=== PATIENT | male | born 1975 | race Caucasian/White ===

== ENCOUNTER 2016-05-18 12:07 | Emergency (ER) | payer SELFPAY ==
[2016-05-18] MEDS ORDERED: Indomethacin 25 mg Capsule ONE (12:44)
--- NOTE | 2016-05-18 13:08 | ERRECORD ---
[facility] EMERGENCY RECORD HPI FOOT (12:43 JLOY) CHIEF COMPLAINT: Patient presents for evaluation of Pt with 4 days of severe right 1st MTP joint pain and swelling. Local warmth. Exquisite tenderness to touch, walking, or trying to put on his boot. Similar to previous gout eppisodes but more severe. No injury. HISTORIAN: History provided by patient. MECHANISM OF INJURY: Unknown mechanism. LOCATION: Symptoms are localized, most severe in the first toe. QUALITY: Pain is dull in nature. TIME COURSE: Symptoms are worsening, are constant, woke with the pain. ASSOCIATED WITH: No associated alcohol use, No associated ankle pain, No associated fever, Associated with inability to ambulate, Associated with inability to bear weight, No associated open wounds, Associated with pain on walking, Associated with warmth. EXACERBATED BY: Patient's condition exacerbated by walking, Patient's condition exacerbated by touch, movement. RELIEVED BY: Patient's condition relieved by nothing. ROS (12:45 JLOY) CONSTITUTIONAL: Historian denies chills, denies fever. GI: Historian denies nausea, denies vomiting. SKIN: mild redness at the site. NEUROLOGIC: Historian denies paralysis, denies paresthesias, denies sensory changes. PAST MEDICAL HISTORY MEDICAL HISTORY: Flu vaccine not up to date, Tetanus not up to date, Pneumococcal vaccine not up to date, Past medical history includes musculoskeletal disorder, gout, Past medical history includes neurological disease, Epilepsy. (12:22 [facility]) MALE SURGICAL HISTORY: Surgical history of orthopedic surgery, LEFT KNEE SURGERY. (12:23 [facility]) PSYCHIATRIC HISTORY: No previous psychiatric history. (12:23 [facility]) SOCIAL HISTORY: Patient denies alcohol use, Patient denies drug use, Patient has no smoking history. (12:23 [facility]) NOTES: Nursing records reviewed, Agree with nursing records. (12:47 JLOY) KNOWN ALLERGIES NKDA CURRENT MEDICATIONS (12:17 [facility]) Depakote: TABLET, DELAYED RELEASE (ENTERIC COATED) : Strength - 500 mg : ORAL Patient Dose: 1000 mg Oral 2 times a day. &a-1R&a+25V*p+0X*f9601W*c202B*c15G*c2P*p-0X&a-25V&a+1R Name: Juan Chavez : 1975 10 MedRec: [id number] AcctNum: [id number] Prepared: WedMay 18, 2016 12:58 by Interface Page [address] [facility] EMERGENCY RECORD VITAL SIGNS (12:09 [facility]) VITAL SIGNS: BP: 140/79 (Sitting), Pulse: 72 (Regular), Resp: 18 (Non-Labored), Temp: 97.6 (Oral), Pain: 10 (Constant), O2 sat: 95 on Room Air, Time: 05/18/2016 12:09. PHYSICAL EXAM (12:45 [facility]) CONSTITUTIONAL: Vital Signs Reviewed, Patient appears non toxic, Patient alert and oriented to person, place and time. LOWER EXTREMITY: Lower extremity exam included findings of inspection normal, Range of motion normal, Motor strength normal, Sensation intact, Pedal pulse normal, distal motor intact, distal sensory intact, Mod swelling of right 1st MTP joint. TTP. Warm with mild redness of the skin. No drainage. Toe exam normal distally. NEURO: [place] coma scale 15, Neuro exam findings include patient oriented to person, place and time, Speech normal. SKIN: Skin exam included findings of skin warm, dry, and normal in color. PSYCHIATRIC: Normal affect. MEDICATION ADMINISTRATION SUMMARY Drug Name: indomethacin oral, Dose Ordered: 50 mg, Route: Oral, Status: Given, Time: 12:43 05/18/2016, Detailed record available in Medication Service section. PROBLEM LIST No recorded problems DIAGNOSIS (12:48 [facility]) FINAL: PRIMARY: GOUT UNSPECIFIED. PRESCRIPTION (12:43 [facility]) indomethacin oral: CAPSULE : 50 mg : ORAL : Quantity: 50 Unit: mg Route: ORAL Schedule: every 8 hours PRN Dispense: 20 May substitute. Refills: No Refills . NOTES: Take 3 times a day for the first 2-3 days until the pain improves and then take 2 times a day until the pain is gone. No Refills. DISPOSITION PATIENT: Disposition Type: Discharge, Disposition: *Discharge Home. (12:48 [facility]) Patient left the department. (12:52 [facility]) Velarde: [facility]=MD Femi, Igor [facility]=ELENA Henao, Ely &joaquin-1R&a+25V*p+0X*s1437G*c202B*c15G*c2P*p-0X&a-25V&a+1R Name: Juan Chavez : 1975 M40 MedRec: [id number] AcctNum: [id number] Prepared: WedMay 18, 2016 12:58 by Interface Page 2 of 2 pMD MTDD
--- NOTE | 2016-05-18 13:15 | PICIS ---
[facility] EMERGENCY RECORD TRIAGE (12:16 [facility]) TRIAGE NOTES: RT FOOT/GREAT TOE PAIN X 4 DAYS, HX GOUT NO INJURY. (12:16 [facility]) PATIENT: NAME: Juan Chavez, AGE: 40, GENDER: male, : Wed1975, TIME OF GREET: WedMay 18, 2016 12:08, PREFERRED LANGUAGE: Uzbek, ECODE BILLING MAP: [facility], SSN: [id number], Zip Code: [address], KG WEIGHT: [phone], PHONE: , , , PERSON ID: [id number], PCP: DR MAXX YOUNG. (12:16 [facility]) COMPLAINT: RIGHT FOOT PAIN. (12:16 [facility]) ADMISSION: URGENCY: 4 Non Urgent, ADMISSION SOURCE: Home, TRANSPORT: CAR, BED: ER -02. (12:16 [facility]) ASSESSMENT: Assessment: PAIN SWELLING, REDNESS TO RIGHT GREAT TOE X 4 DAYS, PAIN EXTENDS UP RT FOOT TO ANKLE, HX GOUT, NO INJURY, Symptoms began 4 DAYS AGO. (12:19 [facility]) PAIN: Pain is constant, Aggravating factors:, Pain exacerbated by movement, No efforts tried to relieve symptoms. (12:19 [facility]) IMMUNIZATIONS: Flu vaccine not up to date, Tetanus not up to date, Pneumococcal vaccine not up to date. (12:19 [facility]) SIRS SCORING: Heart Rate 55-109 (0), Temp range 96.8-101.1 (0), respiratory rate 12-24 (0), Mental Status altered: no (0), Infection or Suspected Infection: No. (12:19 [facility]) TRIAGE SCREENING: Patient denies suicidal ideation, Patient denies presence of domestic violence. (12:19 [facility]) PROVIDERS: TRIAGE NURSE: Ely Henao RN. (12:16 [facility]) VITAL SIGNS: BP 140/79, (Sitting), Pulse 72, (Regular), Resp 18, (Non-Labored), Temp 97.6, (Oral), Pain 10, (Constant), O2 Sat 95, on Room Air, Time 05/18/2016 12:09. (12:09 [facility]) KNOWN ALLERGIES NKDA CURRENT MEDICATIONS (12:17 [facility]) Depakote: TABLET, DELAYED RELEASE (ENTERIC COATED) : Strength - 500 mg : ORAL Patient Dose: 1000 mg Oral 2 times a day. VITAL SIGNS (12:09 [facility]) VITAL SIGNS: BP: 140/79 (Sitting), Pulse: 72 (Regular), Resp: 18 (Non-Labored), Temp: 97.6 (Oral), Pain: 10 (Constant), O2 sat: 95 on Room Air, Time: 05/18/2016 12:09. NURSING ASSESSMENT: EXTREMITY LOWER (12:16 [facility]) CONSTITUTIONAL: Patient arrives ambulatory, Gait steady, History obtained from patient, Patient appears, obese, uncomfortable, Patient cooperative, Patient alert, Oriented to person, place and time, Skin warm, Skin dry, Skin normal in color, &a-1R&a+25V*p+0X*b0254Y*c202B*c15G*c2P*p-0X&a-25V&a+1R Name: Juan Chavez : 1975 M40 MedRec: [id number] AcctNum: [id number] Prepared: WedMay 18, 2016 13:03 by Interface Page 1 of 5 pMD [facility] EMERGENCY RECORD Mucous membranes pink, Mucous membranes moist, Patient is well-groomed, Patient complains of SWELLING REDNESS PAIN TO RIGHT GREAT TOE. PAIN: aching pain, to the first metatarsal on the right foot, Pain radiates, PAIN RADIATES DOWN RT FOOT TO ANKLE, Onset of pain 4 DAYS AGO, constant, on a scale 0-10 patient rates pain as 10, Pain exacerbated by, ambulation, bending, exercise, palpation, pressure, remaining still, rest, walking, weight bearing, Nothing has been tried to alleviate the pain. LEFT LOWER EXTREMITY: Left lower extremity assessment findings include capillary refill less than 2 seconds, Skin color normal, Skin temperature warm, Distal sensation intact, Muscle tone normal, muscle strength 5, no edema present, posterior tibia pulse is +3, Inspection findings include no signs of infection, Inspection findings include no signs of trauma, Inspection findings include no swelling. RIGHT LOWER EXTREMITY: Right lower extremity assessment findings include capillary refill less than 2 seconds, Skin color normal, Skin temperature warm, Distal sensation intact, Muscle tone normal, muscle strength 3, +2 edema present, posterior tibia pulse is +3, dorsalis pedis pulse is +3, Inspection findings include redness, to RT GREAT TOE, Inspection findings include no signs of infection, Inspection findings include no signs of trauma, Inspection findings include swelling, to RT GREAT TOE, Notes: HX OF GOUT ONE YEAR AGO, USED TO TAKE ALLOPURINOL, STATES MED DIDN'T WORK. SAFETY: Side rails up, Cart/Stretcher in lowest position, Family at bedside, Call light within reach, Hospital ID band on. NURSING PROCEDURE: DISCHARGE NOTE (12:51 [facility]) DISCHARGE: Patient discharged to home, ambulating without assistance, family driving, accompanied by other family member, Summary of Care printed/ provided, Patient requested and was provided an electronic copy of Discharge Instructions, Transition record given to patient, Discharge instructions given to patient, Simple or moderate discharge teaching performed, by Jose Maria HENAO RN, Prescriptions given and instructions on side effects given, Name of prescription(s) given: INDOCIN, Medication reconciliation form given, and reviewed with patient, Above person(s) verbalized understanding of discharge instructions and follow-up care, Notes: DC HOME STABLE, AMBULATES SLOW STEADY GAIT. BELONGINGS: Belongings and valuables with patient upon arrival to the Emergency Department include:. MEDICATION ADMINISTRATION SUMMARY Drug Name: indomethacin oral, Dose Ordered: 50 mg, Route: Oral, Status: Given, Time: 12:43 05/18/2016, Detailed record available in Medication Service section. &a-1R&a+25V*p+0X*v3181V*c202B*c15G*c2P*p-0X&a-25V&a+1R Name: Juan Chavez : 1975 M40 MedRec: [id number] AcctNum: [id number] Prepared: WedMay 18, 2016 13:03 by Interface Page 2 of 5 pMD [facility] EMERGENCY RECORD MEDICATION SERVICE indomethacin oral: Order: indomethacin oral (indomethacin) - Dose: 50 mg : Oral Ordered by: Igor Kahn MD Entered by: Igor Kahn MD WedMay 18, 2016 12:41 Documented as given by: Ely Henao RN WedMay 18, 2016 12:43 Patient, Medication, Dose, Route and Time verified prior to administration. Amount given: 50 MG, Site: Medication administered P.O., Correct patient, time, route, dose and medication confirmed prior to administration, Patient advised of actions and side-effects prior to administration, Allergies confirmed and medications reviewed prior to administration, Administered by Jose Maria HENAO RN, Patient in position of comfort, Side rails up, Cart in lowest position, Family at bedside. : Follow Up : No signs or symptoms of allergic reaction noted. (12:51 [facility]) HPI FOOT (12:43 [facility]) CHIEF COMPLAINT: Patient presents for evaluation of Pt with 4 days of severe right 1st MTP joint pain and swelling. Local warmth. Exquisite tenderness to touch, walking, or trying to put on his boot. Similar to previous gout eppisodes but more severe. No injury. HISTORIAN: History provided by patient. MECHANISM OF INJURY: Unknown mechanism. LOCATION: Symptoms are localized, most severe in the first toe. QUALITY: Pain is dull in nature. TIME COURSE: Symptoms are worsening, are constant, woke with the pain. ASSOCIATED WITH: No associated alcohol use, No associated ankle pain, No associated fever, Associated with inability to ambulate, Associated with inability to bear weight, No associated open wounds, Associated with pain on walking, Associated with warmth. EXACERBATED BY: Patient's condition exacerbated by walking, Patient's condition exacerbated by touch, movement. RELIEVED BY: Patient's condition relieved by nothing. ROS (12:45 [facility]) CONSTITUTIONAL: Historian denies chills, denies fever. GI: Historian denies nausea, denies vomiting. SKIN: mild redness at the site. NEUROLOGIC: Historian denies paralysis, denies paresthesias, denies sensory changes. PAST MEDICAL HISTORY MEDICAL HISTORY: Flu vaccine not up to date, Tetanus not up to date, Pneumococcal vaccine not up to date, Past medical history includes musculoskeletal disorder, gout, Past medical history includes &a-1R&a+25V*p+0X*c4336L*c202B*c15G*c2P*p-0X&a-25V&a+1R Name: Juan Chavez : 1975 M40 MedRec: [id number] AcctNum: [id number] Prepared: WedMay 18, 2016 13:03 by Interface Page 3 of 5 pMD [facility] EMERGENCY RECORD neurological disease, Epilepsy. (12:22 [facility]) MALE SURGICAL HISTORY: Surgical history of orthopedic surgery, LEFT KNEE SURGERY. (12:23 [facility]) PSYCHIATRIC HISTORY: No previous psychiatric history. (12:23 [facility]) SOCIAL HISTORY: Patient denies alcohol use, Patient denies drug use, Patient has no smoking history. (12:23 [facility]) NOTES: Nursing records reviewed, Agree with nursing records. (12:47 JLOY) PHYSICAL EXAM (12:45 [facility]) CONSTITUTIONAL: Vital Signs Reviewed, Patient appears non toxic, Patient alert and oriented to person, place and time. LOWER EXTREMITY: Lower extremity exam included findings of inspection normal, Range of motion normal, Motor strength normal, Sensation intact, Pedal pulse normal, distal motor intact, distal sensory intact, Mod swelling of right 1st MTP joint. TTP. Warm with mild redness of the skin. No drainage. Toe exam normal distally. NEURO: [place] coma scale 15, Neuro exam findings include patient oriented to person, place and time, Speech normal. SKIN: Skin exam included findings of skin warm, dry, and normal in color. PSYCHIATRIC: Normal affect. EVENTS TRANSFER: Triage to Emergency Emergency Room -02. (WedMay 18, 2016 12:16 [facility]) Removed from Emergency Emergency Room -02. (12:52 [facility]) PROBLEM LIST No recorded problems DIAGNOSIS (12:48 [facility]) FINAL: PRIMARY: GOUT UNSPECIFIED. DISPOSITION PATIENT: Disposition Type: Discharge, Disposition: *Discharge Home. (12:48 [facility]) Patient left the department. (12:52 [facility]) INSTRUCTION (12:48 [facility]) DISCHARGE: ARTHRITIS GOUT. FOLLOWUP: Follow up with Primary Care Physician in 7-10 days. PRESCRIPTION (12:43 JLO[facility]) indomethacin oral: CAPSULE : 50 mg : ORAL : Quantity: 50 Unit: mg Route: ORAL Schedule: every 8 hours PRN Dispense: 20 May substitute. Refills: No Refills . NOTES: Take 3 times a day for the first 2-3 days until the pain &a-1R&a+25V*p+0X*q4988E*c202B*c15G*c2P*p-0X&a-25V&a+1R Name: Juan Chavez : 1975 M40 MedRec: [id number] AcctNum: [id number] Prepared: WedMay 18, 2016 13:03 by Interface Page 4 of 5 pMD [facility] EMERGENCY RECORD improves and then take 2 times a day until the pain is gone. No Refills. IMAGING (12:52 [facility]) *DISCHARGE INSTRUCTIONS RECEIPT: Image captured from scanner. *SUPPLY CHARGE SHEET: Image captured from scanner. ADMIN DIGITAL SIGNATURE: MD Kahn Joshua. (12:47 JL) MD Kahn Joshua. (12:49 JLOY) ELENA Henao Linda. (12:52 [facility]) Velarde: [facility]LOY=MD Kahn Joshua [facility]=ELENA Henao Linda &a-1R&a+25V*p+0X*n1202W*c202B*c15G*c2P*p-0X&a-25V&a+1R Name: Kathy Juan M : 1975 10 MedRec: [id number] AcctNum: [id number] Prepared: WedMay 18, 2016 13:03 by Interface Page 5 of 5 D [facility] MEDICATION RECONCILIATION You were seen in the Emergency Department on: WedMay 18, 2016 KNOWN ALLERGIES NKDA MEDICATIONS GIVEN WHILE IN THE EMERGENCY DEPARTMENT indomethacin oral (indomethacin) - Dose: 50 milligram(s) : Oral HOME MEDICATIONS CONTINUE PRESCRIBED Depakote : TABLET, DELAYED RELEASE (ENTERIC COATED) : Strength - 500 mg : ORAL Continue as prescribed Patient had been takin mg Oral 2 times a day. PRESCRIPTIONS (1) &a-1R&a+25V*p+0X*l2033B*c202B*c15G*c2P*p-0X&a-25V&a+1R Name: KathyJuan Francesco : 1975 M40 MedRec: [id number] AcctNum: [id number] Prepared: WedMay 18, 2016 13:03 by Interface pMD [facility]
== END 2016-05-18 12:50 | disposition home or self-care (01) ==
LOC: NAV ERS 12:07
DX: M10.9 Gout, unspecified (principal); G40.909 Epilepsy, unspecified, not intractable, without status epilepticus; Z79.899 Other long term (current) drug therapy
CPT/HCPCS: 99283

== ENCOUNTER 2018-02-07 09:31 | Emergency (ER) | payer SELFPAY ==
[2018-02-07] MEDS ORDERED: diphenhydrAMINE 25 MG CAP ONE (09:59)
[2018-02-07] MEDS ORDERED: predniSONE 20 MG TAB ONE (10:00)
[2018-02-07] MEDS ORDERED: Famotidine 20 MG TAB ONE (10:00)
== END 2018-02-07 11:19 | disposition home or self-care (01) ==
LOC: NAV ERS 09:31
DX: T63.441A Toxic effect of venom of bees, accidental (unintentional), initial encounter (principal); G40.909 Epilepsy, unspecified, not intractable, without status epilepticus; F17.220 Nicotine dependence, chewing tobacco, uncomplicated; M10.9 Gout, unspecified; Z79.899 Other long term (current) drug therapy
CPT/HCPCS: 99282; J7506

== ENCOUNTER 2018-06-13 08:07 | Emergency (ER) | payer SELFPAY | END 2018-06-13 08:40 | disposition home or self-care (01) | LOC: NAV ERS 08:07 | DX: M25.562 Pain in left knee (principal); M10.9 Gout, unspecified; G40.909 Epilepsy, unspecified, not intractable, without status epilepticus; F17.220 Nicotine dependence, chewing tobacco, uncomplicated | CPT/HCPCS: 99281 ==

== ENCOUNTER 2018-09-20 19:09 | Emergency (ER) | payer SELFPAY ==
[2018-09-20 20:08] LABS: ALT (SGPT) 24 U/L (8-55); AST (SGOT) 27 U/L (5-34); Albumin 4.2 g/dL (3.5-5.0); Alkaline Phosphatase 44 U/L (40-150); Anion Gap 18 mmol/L (10-20); BUN (Urea Nitrogen) 11 mg/dL (8.9-20.6); Bilirubin, Total 0.7 mg/dL (0.2-1.2); Calc. Creatinine Clearance 0 mL/min (70-130); Calcium 9.3 mg/dL (7.8-10.44); Chloride 104 mmol/L (98-107); Estimated GFR-MDRD Greater than 90; Globulin 3.3 g/dL (2.4-3.5); Glucose 101 mg/dL (70-105); Protein, Total 7.5 g/dL (6.0-8.3)
[2018-09-20 20:17] LABS: Carbon Dioxide 24 mmol/L (22-29); Hemoglobin 15.3 g/dL (14.0-18.0); Mean Corpuscular HGB CONC 32.1 g/dL (32.0-36.0); Mean Corpuscular Hemoglobin 27.8 pg (27.0-31.0); Mean Corpuscular Volume 86.6 fL (78.0-98.0); Mean Platelet Volume 13.8 fL (7.4-10.4); Platelet Count 130 thou/uL (130-400); RBC Distribution Width 11.8 % (11.5-14.5); Red Blood Cell (RBC) Count 5.52 mill/uL (4.70-6.10); Sodium 142 mmol/L (136-145); White Blood Cell (WBC) Count 7.2 thou/uL (4.8-10.8)
[2018-09-20 20:39] LABS: Eosinophils 2 % (0-10); Lymphocytes 26 % (21-51); MDiff Complete? YES; Monocytes 3 % (0-10); Neutrophil 69 % (42-75); Platelet Morphology Comment Appears Adequate; RBC Morphology Normal
[2018-09-20 21:11] LABS: Bilirubin Negative (Negative); Blood, Urine Negative (Negative); Clarity Clear (Clear); Glucose, Urine (Dipstick) Negative (Negative); Leukocyte Negative (Negative); Nitrite Negative (Negative); Protein, Urine (Dipstick) Negative (Neg-Trace); Urobilinogen > or = 8.0 mg/dL (0.2-1.0)
== END 2018-09-20 21:45 | disposition home or self-care (01) ==
LOC: NAV ERS 19:09
DX: I87.2 Venous insufficiency (chronic) (peripheral) (principal); M79.89 Other specified soft tissue disorders; M10.9 Gout, unspecified; G43.909 Migraine, unspecified, not intractable, without status migrainosus; F17.220 Nicotine dependence, chewing tobacco, uncomplicated; Z79.899 Other long term (current) drug therapy
CPT/HCPCS: 80053; 81003; 82550; 83880; 84484; 85025; 85379; 86140; 93005

== ENCOUNTER 2019-01-01 14:50 | Emergency (ER) | payer OTHER | END 2019-01-01 15:15 | disposition home or self-care (01) | LOC: NAV ERS 14:50 | DX: L03.114 Cellulitis of left upper limb (principal); M10.9 Gout, unspecified; G40.909 Epilepsy, unspecified, not intractable, without status epilepticus; F17.220 Nicotine dependence, chewing tobacco, uncomplicated; Z79.899 Other long term (current) drug therapy | CPT/HCPCS: 99283 ==

== ENCOUNTER 2019-02-07 16:23 | Emergency (ER) | payer OTHER, SELFPAY ==
[2019-02-07] MEDS ORDERED: Sulfameth/Trimethoprim DS 800-160mg TAB ONE (16:48)
== END 2019-02-07 16:53 | disposition home or self-care (01) ==
LOC: NAV ERS 16:23
DX: R22.32 Localized swelling, mass and lump, left upper limb (principal); M10.9 Gout, unspecified; G40.909 Epilepsy, unspecified, not intractable, without status epilepticus; F17.220 Nicotine dependence, chewing tobacco, uncomplicated; Z79.899 Other long term (current) drug therapy
CPT/HCPCS: 99283

== ENCOUNTER 2019-03-03 19:01 | Emergency (ER) | payer SELFPAY ==
--- NOTE | 2019-03-03 20:16 | RAD ---
EXAM: 3 views of the right foot HISTORY: Foot pain COMPARISON: None FINDINGS: 3 views of the right foot shows no evidence of acute fracture or dislocation. No soft tissu e swelling is seen. No degenerative changes are present. IMPRESSION: No evidence of acute osseous abnormality.
--- NOTE | 2019-03-03 20:16 | RAD ---
EXAM: 3 views of the right ankle HISTORY: Ankle pain COMPARISON: None FINDINGS: 3 views of the right ankle shows no evidence of acute fracture or dislocation. Moderate dif fuse soft tissue swelling is seen. No degenerative changes are present. IMPRESSION: No evidence of acute osseous abnormality.
[2019-03-03] MEDS ORDERED: traMADol HCl 50 MG TAB ONE (20:23)
== END 2019-03-03 20:53 | disposition home or self-care (01) ==
LOC: NAV ERS 19:01
DX: S93.601A Unspecified sprain of right foot, initial encounter (principal); M10.9 Gout, unspecified; G40.909 Epilepsy, unspecified, not intractable, without status epilepticus; F17.220 Nicotine dependence, chewing tobacco, uncomplicated; X50.1XXA Overexertion from prolonged static or awkward postures, initial encounter

== ENCOUNTER 2019-04-28 22:44 | Emergency (ER) | payer SELFPAY ==
[2019-04-28] MEDS ORDERED: Fluorescein Opthalmic Strip ONE ×2 (22:53→22:56)
[2019-04-28] MEDS ORDERED: Erythromycin Base 0.5% Oint 1 GM TUBE ONE (23:15)
== END 2019-04-28 23:23 | disposition home or self-care (01) ==
LOC: NAV ERS 22:44
DX: H10.9 Unspecified conjunctivitis (principal); M10.9 Gout, unspecified; G40.909 Epilepsy, unspecified, not intractable, without status epilepticus; F17.220 Nicotine dependence, chewing tobacco, uncomplicated
CPT/HCPCS: 99283

== ENCOUNTER 2019-05-16 13:01 | Emergency (ER) | payer SELFPAY ==
[2019-05-16] MEDS ORDERED: Ondansetron ODT 4 MG TAB ONE (13:26)
== END 2019-05-16 14:35 | disposition home or self-care (01) ==
LOC: NAV ERS 13:01
DX: J10.1 Influenza due to other identified influenza virus with other respiratory manifestations (principal); R11.2 Nausea with vomiting, unspecified; M10.9 Gout, unspecified; G40.909 Epilepsy, unspecified, not intractable, without status epilepticus; F17.220 Nicotine dependence, chewing tobacco, uncomplicated; Z79.899 Other long term (current) drug therapy
CPT/HCPCS: 87804; 99283; Q0162

== ENCOUNTER 2019-09-11 07:21 | Emergency (ER) | payer SELFPAY ==
[2019-09-11] MEDS ORDERED: predniSONE 20 MG TAB ONE (07:40)
== END 2019-09-11 07:53 | disposition home or self-care (01) ==
LOC: NAV ERS 07:21
DX: T63.441A Toxic effect of venom of bees, accidental (unintentional), initial encounter (principal); G40.909 Epilepsy, unspecified, not intractable, without status epilepticus; M10.9 Gout, unspecified; F17.220 Nicotine dependence, chewing tobacco, uncomplicated; Z79.899 Other long term (current) drug therapy
CPT/HCPCS: 99282; J7512

== ENCOUNTER 2020-04-29 20:13 | Emergency (ER) | payer SELFPAY ==
[2020-04-29] MEDS ORDERED: Acetaminophen 500 MG TAB ONE (20:54)
[2020-04-29] MEDS ORDERED: Ibuprofen 800 MG TAB ONE (20:54)
[2020-04-29] MEDS ORDERED: Sodium Chloride 0.9% 1,000 ML ONE (20:54)
[2020-04-29] MEDS ORDERED: Ondansetron PF 4 MG/2 ML Vial ONE ×2 (20:54→21:52)
[2020-04-29 21:14] LABS: ALT (SGPT) 19 U/L (8-55); AST (SGOT) 17 U/L (5-34); Albumin 4.3 g/dL (3.5-5.0); Alkaline Phosphatase 46 U/L (40-110); Anion Gap 17 mmol/L (10-20); BUN (Urea Nitrogen) 13 mg/dL (8.9-20.6); Bilirubin, Total 1.5 mg/dL (0.2-1.2); Calc. Creatinine Clearance 0 mL/min (70-130); Carbon Dioxide 24 mmol/L (22-29); Chloride 97 mmol/L (98-107); Globulin 3.6 g/dL (2.4-3.5); Glucose 105 mg/dL (70-105); Potassium 4.3 mmol/L (3.5-5.1); Protein, Total 7.9 g/dL (6.0-8.3); Sodium 134 mmol/L (136-145)
[2020-04-29 21:22] LABS: Hemoglobin 16.2 g/dL (14.0-18.0); Mean Corpuscular HGB CONC 32.4 g/dL (32.0-36.0); Mean Corpuscular Hemoglobin 29.1 pg (27.0-31.0); Mean Corpuscular Volume 89.9 fL (78.0-98.0); Mean Platelet Volume 13.1 fL (7.4-10.4); Platelet Count 118 thou/uL (130-400); RBC Distribution Width 11.8 % (11.5-14.5); Red Blood Cell (RBC) Count 5.55 mill/uL (4.70-6.10); White Blood Cell (WBC) Count 11.1 thou/uL (4.8-10.8)
[2020-04-29 21:29] LABS: Band 37 % (5-11); Lymphocytes 18 % (21-51); MDiff Complete? YES; Metamyelocyte 2 % (0-0); Neutrophil 43 % (42-75); Platelet Morphology Comment Appears Decreased; RBC Morphology Normal
--- NOTE | 2020-04-29 21:31 | RAD ---
Exam: Chest one view HISTORY:Fever Comparison: 06/22/2009 FINDINGS: Cardiac silhouette: Normal Aorta: Unremarkable Pulmonary vessels: Normal Costophrenic angles: Clear LUNGS: Right suprahilar infiltrate. Pneumothorax: None Osseous abnormalities: None IMPRESSION: Right suprahilar infiltrate. Correlate for pneumonia.
[2020-04-29] MEDS ORDERED: Sodium Chloride 0.9% 100 ML ONE (21:49)
[2020-04-29] MEDS ORDERED: cefTRIAXone\\ROCEPHIN 1 GM VIAL ONE (21:49)
[2020-04-29] MEDS ORDERED: Valproate Sodium 250 mg/5 ml UD Cup PO SCH (23:00)
[2020-04-29] MEDS ORDERED: Aspirin Chewable 81 MG TAB ONE (23:07)
[2020-04-29] MEDS ORDERED: Dexamethasone 4 mg/ml Vial ONE (23:07)
[2020-04-29] MEDS ORDERED: Azithromycin 250 MG TAB ONE (23:57)
[2020-04-30 14:26] LABS: SARS-CoV-2 NAA Rapid Test Not Detected (NotDetected)
== END 2020-04-30 03:00 | disposition short-term general hospital (02) ==
LOC: NAV ERS 20:13
DX: J18.9 Pneumonia, unspecified organism (principal); Z20.828 Contact with and (suspected) exposure to other viral communicable diseases; M10.9 Gout, unspecified; G40.909 Epilepsy, unspecified, not intractable, without status epilepticus; F17.290 Nicotine dependence, other tobacco product, uncomplicated; Z79.899 Other long term (current) drug therapy
CPT/HCPCS: 0241U; 71045; 80053; 83605; 83880; 84484; 85025; 87040; 87804; 93005; 94760; 96365; 96375; 96376; J0696; J1100; J2405; J3490; J7050

== ENCOUNTER 2020-05-21 09:04 | Outpatient (CLI) | payer SELFPAY ==
[~2020-05-21 09:04] MED LIST: Iopamidol 370 76% 100 ML VIAL ONE
--- NOTE | 2020-05-21 10:52 | CT ---
CT ANGIOGRAM THORAX WITH IV CONTRAST AND 3-D RECONSTRUCTIONS CLINICAL INDICATION: Exertional dyspnea. COMPARISON: None FINDINGS: Pulmonary arteries: There is suboptimal timing of the contrast bolus. No filling defects are seen in the central or proximal segmental pulmonary arteries to suggest pulmonary embolus, but there is suboptimal opacification of the distal segmental and subsegmental pulmonary arteries limiting evaluat ion for pulmonary emboli at these levels. Aorta: The aorta is normal in caliber without evidence of an aortic dissection. Lungs: There is a patchy parenchymal airspace wedge-shaped density as well as linear densities seen i n the anterior aspect of the right upper lobe with minimal patchy densities seen at the posterior aspect right upper lobe. Findings are worrisome for pneumonia. The left lung is clear aside from mini mal dependent atelectasis. The large airways do appear patent. No pleural effusion is identified. Mediastinum: There is no evidence of lymphadenopathy. Thyroid gland: Normal in appearance where imaged. Osseous structures: No suspicious lytic or sclerotic osseous lesion. Chest wall: No abnormality visualized. Upper abdomen: Mild diminished attenuation of the imaged portions of the liver are seen suggesting fa tty infiltration. Remainder the visualized upper abdomen demonstrates a normal CT appearance. IMPRESSION: 1. Right upper lobe pneumonia. Follow-up to resolution is recommended. 2. Suboptimal timing of the contrast bolus limiting evaluation of the distal segmental as well as sub segmental pulmonary arteries, and pulmonary emboli at these levels could not be excluded. There are no findings to suggest a pulmonary embolus involving the central or proximal segmental pulmonary jesus jose g.
== END 2020-05-21 09:05 | disposition home or self-care (01) ==
LOC: NAV RAD 09:04 → EDSTATUS 09:53
DX: R06.09 Other forms of dyspnea (principal); I10 Essential (primary) hypertension; J18.9 Pneumonia, unspecified organism
CPT/HCPCS: 71275; Q9967

== ENCOUNTER 2023-12-19 01:55 | Emergency (ER) | payer OTHER ==
[2023-12-19] MEDS ORDERED: Indomethacin 25 mg Capsule ONE (02:40)
== END 2023-12-19 02:47 | disposition home or self-care (01) ==
LOC: NAV ERS 01:55
DX: M10.9 Gout, unspecified (principal); F17.290 Nicotine dependence, other tobacco product, uncomplicated
CPT/HCPCS: 99283